=== PATIENT | male | born 1965 | race Hispanic/Latino ===

== ENCOUNTER → 2020-05-10 | Outpatient (CLI) | payer OTHER ==
--- NOTE | 2020-05-10 14:06 | Diagnostic Imaging Report ---
X-ray abdomen KUB History: Passed stones on Sunday, still pain Comparison: None Findings: Nonobstructive bowel gas pattern. Small calcific densities overlying the right kidney could represent right-sided renal calculi. There is presence of an 8 mm x 5 mm oval calcific density at L3-4 intervertebral disc level that most likely represents a ureteric calculus. There is no calculi suspected on this exam on the left kidney or along the course of the left ureter. No calcific density superimposed on the bladder to suggest bladder calculi. 5 lumbar type vertebrae. No aggressive osseous lesions. Lung bases clear. Impression: Most likely a right ureteric calculus measuring 8 x 5 mm as described above. This correlates with the history of persistent right-sided abdominal pain. Signed by: Yadiel Hernandez MD on 05/10/2020 2:03 PM
== END ==
LOC: RAD 12:00
PROVIDERS: ATTEND Urology
DX: N20.0 Calculus of kidney (principal)
CPT/HCPCS: 74018

== ENCOUNTER → 2024-08-29 | Day surgery (SDC) | payer OTHER ==
[~2024-08-29] MED LIST: DEXAMETHASONE SOD PHOS INJ 4 MG/ML SDV ONE; EPHEDRINE SULFATE INJ 50 MG/ML VIAL ONE; FENTANYL CITRATE/PF 100MCG/2 ML INJ ONE; LIDOCAINE HCL 2% LOCAL INJ 5 ML SDV VIAL INJ ONE; ONDANSETRON HCL INJ 2MG/ML 2ML 2 MG/ML VIAL ONE; PROPOFOL IV EMULSION 10 MG/ML 20 ML VIAL ONE; SEVOFLURANE INHAL SOLN 250 ML PEN BTL ONE
[2024-08-29] MEDS: CEFTRIAXONE 1 GM VIAL ONE (06:56)
[2024-08-29] MEDS: LACTATED RINGER'S 1,000 ML ONE (06:56)
[2024-08-29 09:52] VITALS: BP 134/89; PULSE 84; RESP 18; O2SAT 98
== END | disposition home or self-care (01) ==
LOC: OR 06:16
PROVIDERS: ATTEND Urology
DX: N20.0 Calculus of kidney (principal); K76.0 Fatty (change of) liver, not elsewhere classified; Z01.810 Encounter for preprocedural cardiovascular examination; Z01.818 Encounter for other preprocedural examination
CPT/HCPCS: 50590; 74018; 93005; J0696; J1100; J2003; J2405; J2704; J3010; J7121